=== PATIENT | female | born 2000 | race African-American/Black ===

== ENCOUNTER 2019-09-23 20:27 | Emergency (ER) | payer OTHER, SELFPAY ==
--- NOTE | ~2019-09-23 | XR_ITS ---
EXAMINATION: XR chest 2V DATE: 09/23/2019 21:57 INDICATION: Mid chest pain. Left arm pain. TECHNIQUE: Frontal and lateral views of the chest were obtained. COMPARISON: None. FINDINGS: The chest demonstrates clear lungs without pneumonia, pleural effusion, or pneumothorax. Th e heart size is normal. IMPRESSION: 1. No acute cardiopulmonary disease. Reviewed, dictated and finalized at location A. [employer]
[2019-09-23 20:35] VITALS: BP 90/65; PULSE 86; RESP 18; TEMP 37; O2SAT 100
--- NOTE | 2019-09-23 21:12 | ECG_ITS ---
Measurements Intervals [place] Rate: 62 P: 30 CA: 114 QRS: 74 QRSD: 84 T: 66 QT: 417 QTc: 425 Interpretive Statements SINUS RHYTHM WITH SHORT CA INTERVAL VENTRICULAR PREMATURE COMPLEX BORDERLINE ECG Electronically Signed On 09-24-2019 6:54:41 [employer] by Neftaly Malave D.O.
--- NOTE | 2019-09-23 21:41 | ED.CHESTPAIN ---
HPI - Chest Pain General Chief Complaint: Chest Pain Stated Complaint: HEART IS ACHING/STABBING/L ARM PAIN Time Seen by Provider: 09/23/19 21:39 Source: patient and RN notes reviewed Mode of arrival: other Limitations: no limitations History of Present Illness HPI narrative: Pt is a 19 y/o female who presents to the ED with c/o left sided CP that radiates to her left arm that began a couple of hours ago. Pt notes that her pain is aggravated when taking a deep breath and coughing. Pt notes that she had the same sx yesterday. Pt denies taking any medication for her sx. Pt reports palpitations, vomiting yesterday, and diarrhea yesterday, but denies a fever, SOB, swelling in her BLE, pain in her BLE, and wheezing. complaint: chest pain Onset (ago): hour(s) Timing of current episode: still present Pain location: left chest Pain radiation: left arm Exacerbating factors: other (taking a deep breath and coughing) Associated symptoms: vomiting (yesterday), palpitations and other (diarrhea yesterday) Related Data Allergies Allergy/AdvReac Type Severity Reaction Status Date / Time No Known Allergies Allergy Verified 09/23/19 22:21 Review of Systems Review of Systems: All systems reviewed & are unremarkable except as noted in HPI and below Constitutional: Constitutional: Denies fever(s) Cardiovascular: Cardiovascular: Reports chest pain (left sided), Reports radiating jaw, neck or arm pain (left arm) and Reports palpitations Respiratory: Respiratory: Denies dyspnea and Denies wheezing Gastrointestinal: Gastrointestinal: Reports diarrhea (yesterday) and Reports vomiting (yesterday) Musculoskeletal: Musculoskeletal: Denies other (swelling in her BLE, pain in her BLE) [facility] Past Medical History Medical History (Updated 09/23/19 @ 22:54 by Johnnie Henderson MD) Long QT syndrome Surgical History Surgical History (Updated 09/23/19 @ 21:48 by Katie Terrazas) No history of previous surgery Social History Social History Gender identity (if verbalized by the patient): Female Exam Const: General: healthy appearing, no acute distress and alert Orientation/consciousness: oriented x3 HENMT: Head: normal to inspection Neck: Neck: normal visual inspection and no lymphadenopathy Chest: Chest palpation & inspection: no tenderness Resp: Effort & Inspection: normal respiratory effort Auscultation: clear to auscultation bilaterally, no rales, no rhonchi and no wheezes Cardio: Jugular venous distension: no JVD Rate: regular rate Rhythm: regular rhythm Heart sounds: no murmurs GI: Inspection: non-distended Palpation (GI): Yes soft and No tender Skin: General skin exam: normal color Neuro: General: oriented x3 and moves all extremities Speech: normal speech Extrem: General: no edema Psych: Appearance: well kempt Affect: normal affect Course Vital Signs Vital signs: Vital Signs Temperature 37.0 C 09/23/19 20:35 Pulse Rate 86 09/23/19 20:35 Respiratory Rate 18 09/23/19 20:35 Blood Pressure 90/65 L 09/23/19 20:35 Pulse Oximetry 100 09/23/19 20:35 Temperature 37.0 C 09/23/19 20:35 Pulse Rate 86 09/23/19 23:09 Respiratory Rate 16 09/23/19 23:09 Blood Pressure 117/68 09/23/19 23:09 Pulse Oximetry 99 09/23/19 23:09 MDM - Chest Pain Lab Data Result diagrams: 09/23/19 22:10 09/23/19 22:10 Labs: Lab Results 09/23/19 09/23/19 09/23/19 Range/Units 22:10 22:10 22:10 WBC 7.7 (4.5-10.0) K/mm3 RBC 4.34 (4.2-5.4) M/mm3 Hgb 13.9 (12.0-15.0) g/dL Hct 40.8 (37.0-47.0) % MCV 94.0 (80-100) fl MCH 32.0 (26-34) pg MCHC 34.1 (32-36) g/dl RDW 12.4 (11.5-14.5) % Plt Count 307 (150-375) k/mm3 MPV 10.3 (7.4-10.4) fl Immature Gran % (Auto) 0.1 (0-0.5) % Neut % (Auto) 52.1 (45.5-73.1) % Lymph % (Auto) 34.6 (18.3-44.2) % [place] % (Auto) 11.1 H (2.6-8.5) % Eos % (Auto) 1.8 (0-4.
[2019-09-23] MEDS: KETOROLAC 30 MG/ML VIAL (*BKC) IV PUSH (22:10)
[2019-09-23 22:15] LABS: Basophils Percent Auto 0.3 % (0.2-1.2); Eosinophils Absolute Auto 0.1 K/mm3 (0-0.3); Eosinophils Percent Auto 1.8 % (0-4.4); Hematocrit 40.8 % (37.0-47.0); Hemoglobin 13.9 g/dL (12.0-15.0); Immature Granulocyte Absolute 0.01 K/mm3 (0.00-0.031); Immature Granulocyte Percent A 0.1 % (0-0.5); Lymphocytes Absolute Auto 2.66 K/mm3 (0.9-3.2); Lymphocytes Percent Auto 34.6 % (18.3-44.2); Mean Corpuscular HGB Conc 34.1 g/dl (32-36); Mean Platelet Volume 10.3 fl (7.4-10.4); Monocytes Absolute Auto 0.9 K/mm3 (0.1-0.6); Monocytes Percent Auto 11.1 % (2.6-8.5); Neutrophils Percent Auto 52.1 % (45.5-73.1); Platelet Count Result 307 k/mm3 (150-375); Red Blood Count 4.34 M/mm3 (4.2-5.4); Red Cell Distribution Width 12.4 % (11.5-14.5); White Blood Count 7.7 K/mm3 (4.5-10.0)
[2019-09-23 22:25] LABS: INR 0.9; Prothrombin Time 11.9 Seconds (11.1-14.7)
[2019-09-23 22:26] LABS: Blood Urea Nitrogen 13 mg/dL (7-17); Calcium 9.6 mg/dL (8.4-10.2); Carbon Dioxide 23 mmol/L (22-30); Chloride 102 mmol/L (98-107); Estimated CRCL calculation 84 ml/min; Estimated Glomerular Filt Rate > 60; Glucose 75 mg/dL (65-105); Partial Thromboplastin Time 27.7 SECONDS (22.3-36.8); Potassium 3.5 mmol/L (3.4-5.0); Sodium 139 mmol/L (137-145)
[2019-09-23 22:29] VITALS: PULSE 87
[2019-09-23 22:38] LABS: Troponin I < 0.012 ng/mL (0.000-0.034)
[2019-09-23 23:09] VITALS: BP 117/68; PULSE 86; RESP 16; O2SAT 99
== END 2019-09-23 23:11 | disposition home or self-care (01) ==
PROVIDERS: Emergency Medicine; Emergency Provider Emergency Medicine
DX: R07.89 Other chest pain (principal); I49.3 Ventricular premature depolarization; R94.31 Abnormal electrocardiogram [ECG] [EKG]
CPT/HCPCS: 36415; 71046; 80048; 84484; 85025; 85610; 85730; 93005; 96374; 99284; J1885

== ENCOUNTER 2021-10-13 16:18 | Emergency (ER) | payer OTHER, SELFPAY ==
[2021-10-13 17:01] VITALS: BP 129/78; PULSE 92; RESP 18; TEMP 37.2; O2SAT 98
--- NOTE | 2021-10-13 17:48 | PC.NURSE ---
Pt presented to triage desk stating that she does not wish to wait any longer. Reports that she was just wanting a COVID swab anyway . Pt encouraged to stay to be seen by physician but politely declined. Ambulatory upon leaving ED in no apparent distress.
== END 2021-10-14 03:07 | disposition left against medical advice (07) ==
LOC: ANHED 19:19
DX: Z53.21 Procedure and treatment not carried out due to patient leaving prior to being seen by health care provider (principal)
CPT/HCPCS: 99199